=== PATIENT | male | born 1950 | race Caucasian/White ===

== ENCOUNTER 2018-10-05 16:48 | Emergency (ER) | payer MEDICARE, BC ==
[~2018-10-05] VITALS: Ht 167.6 cm; Wt 72.1 kg
--- NOTE | 2018-10-05 17:00 | NUR ---
PT IS IN ROOM #1A. DR BALL EVALUATED THE PT.
[2018-10-05] MEDS ORDERED: IV NORMAL SALINE 1000 ML BAG IV ONE (17:30)
[2018-10-05 17:41] LABS: BASOPHILS # (AUTO) 0.1 K/uL (0.0-8.0); BASOPHILS % (AUTO) 0.9 % (0.0-2.0); EOSINOPHILS # (AUTO) 0.1 K/uL (0.0-0.7); EOSINOPHILS % (AUTO) 1.2 % (0.0-7.0); HEMATOCRIT 42.7 % (36.7-47.1); HEMOGLOBIN 14.5 g/dL (12.5-16.3); LYMPHOCYTES # (AUTO) 1.6 K/uL (20.0-40.0); LYMPHOCYTES % (AUTO) 18.5 % (20.5-51.5); MEAN CORPUSCULAR HEMOGLOBIN 30.3 uug (23.8-33.4); MEAN CORPUSCULAR HGB CONC 34 g/dL (32.5-36.3); MEAN CORPUSCULAR VOLUME 89.5 fL (73.0-96.2); MONOCYTES # (AUTO) 0.4 K/uL (2.0-10.0); MONOCYTES % (AUTO) 4.6 % (0.0-11.0); NEUTROPHILS # (AUTO) 6.4 K/uL (1.8-8.9); NEUTROPHILS % (AUTO) 74.8 % (38.5-71.5); PLATELET COUNT (AUTO) 212 K/uL (152-348); RED BLOOD CELL COUNT(AUTO) 4.78 MIL/uL (4.06-5.63); WHITE BLOOD COUNT (AUTO) 8.6 K/uL (3.6-10.2)
[2018-10-05] MEDS ORDERED: SWABABLE VALVE TRANSFER SET EA MC ONE (17:41)
[2018-10-05] MEDS ORDERED: NORMAL SALINE FLUSH 10 ML DISP.SYRIN ONE (17:41)
[2018-10-05] MEDS ORDERED: IV NORMAL SALINE 250 ML IV ONE (17:41)
[2018-10-05] MEDS ORDERED: IOHEXOL 300MG/ML 100 ML INFUS..BTL ONE (17:41)
[2018-10-05 17:47] LABS: CREATININE 1.1 mg/dL (0.6-1.3); POTASSIUM 4.2 mmol/L (3.5-5.1)
[2018-10-05 17:53] LABS: BILIRUBIN,DIRECT 0.1 mg/dL (0.0-0.2); BILIRUBIN,TOTAL 0.4 mg/dL (0.2-1.0); TOTAL PROTEIN, SERUM 6.8 g/dL (6.4-8.2)
[2018-10-05] MEDS ORDERED: TAMS-3 PO (18:52)
[2018-10-05] MEDS ORDERED: METF-442 PO (18:52)
[2018-10-05] MEDS ORDERED: ATOR10TA PO (18:52)
[2018-10-05] MEDS ORDERED: ASPI81TA31 PO (18:52)
--- NOTE | 2018-10-05 19:19 | NUR ---
PT WAS D/C TO HOME. D/C INSTRUCTIONS GIVEN TO THE PT.
[2018-10-05 19:22] VITALS: BP 142/80
== END 2018-10-05 19:23 | disposition home or self-care (01) ==
LOC: ER 16:53
DX: S30.810A Abrasion of lower back and pelvis, initial encounter (principal); S30.0XXA Contusion of lower back and pelvis, initial encounter; E78.00 Pure hypercholesterolemia, unspecified; E11.9 Type 2 diabetes mellitus without complications; Z79.82 Long term (current) use of aspirin; Z79.84 Long term (current) use of oral hypoglycemic drugs; Z79.899 Other long term (current) drug therapy; W01.198A Fall on same level from slipping, tripping and stumbling with subsequent striking against other object, initial encounter; Y93.89 Activity, other specified; Y92.89 Other specified places as the place of occurrence of the external cause; Y99.8 Other external cause status
CPT/HCPCS: 36415; 74177; 80048; 80076; 85025; 99285; Q9967; A4663; J3490; J7030; J7050